=== PATIENT | female | born 1965 | race Caucasian/White ===

== ENCOUNTER 2025-07-16 13:39 | Emergency (ER) | payer OTHER ==
[2025-07-16] MEDS: Ketorolac 30 MG/ML SDV IVPUSH ONE (14:19)
[2025-07-16] MEDS: diphenhydrAMINE 50 MG/ML SDV IVPUSH ONE (14:19)
== END 2025-07-16 15:55 | disposition home or self-care (01) ==
LOC: DL.ED 13:39
DX: G43.909 Migraine, unspecified, not intractable, without status migrainosus (principal)
CPT/HCPCS: 96374; 96375; 99283; A9270; J1200; J1885; Q0164